=== PATIENT | female | born 1940 | race Two or more races ===

== ENCOUNTER 2020-12-04 00:23 | Emergency (ER) | payer MEDICAID, OTHER ==
[~2020-12-04] VITALS: Ht 162.6 cm; Wt 72.6 kg
[2020-12-04] MEDS ORDERED: HYDROcodone-ACET 5/325MG TAB PO ONE (01:30)
[2020-12-04] MEDS ORDERED: dilTIAZem 25 MG/5 ML VIAL IV ONE (01:30)
[2020-12-04 01:50] LABS: Basophils # (auto) 0.1 10 ^3/uL (0-0.2); Basophils % (auto) 0.5 % (0.0-2.0); Eosinophils # (auto) 0 10 ^3/uL (0-0.8); Eosinophils % (auto) 0.1 % (0.0-7.0); Hematocrit 37.4 % (36.0-46.0); Hemoglobin 12.7 g/dL (12.2-16.2); Lymphocytes # (auto) 1.1 10 ^3/uL (0.4-5.4); Lymphocytes % (auto) 8.6 % (10.0-50.0); Mean Corpuscular Hemoglobin 30.4 pg (28.0-32.0); Mean Corpuscular Hgb Conc. 34.1 g/dL (32.0-36.0); Mean Corpuscular Volume 89.2 fL (80.0-100.0); Monocytes # (auto) 0.8 10 ^3/uL (0-1.3); Monocytes % (auto) 6.6 % (0.0-12.0); Neutrophils # (auto) 10.7 10 ^3/uL (1.6-8.6); Neutrophils % (auto) 84.2 % (37.0-80.0); Red Blood Cells 4.19 10^6/uL (4.0-5.20); Red Cell Distribution Width 13.6 % (11.8-14.3); White Blood Cell 12.7 10^3/uL (4.4-10.8)
[2020-12-04] MEDS ORDERED: METF-370 PO (01:59)
[2020-12-04] MEDS ORDERED: LOSA100T22 PO (02:06)
[2020-12-04] MEDS ORDERED: DABI150C5 PO (02:06)
[2020-12-04] MEDS ORDERED: AMLO-489 PO (02:06)
[2020-12-04 02:08] LABS: Albumin 3.3 g/dL (3.4-5.0); BUN/Creatinine Ratio 30.7; Calcium 9.3 mg/dL (8.5-10.1); INR 1.01 (0.9-1.15); Partial Thromboplastin Time 25.4 sec (23.0-31.2); Potassium 3.2 mmol/L (3.5-5.1)
[2020-12-04 02:11] LABS: Bilirubin, Total 0.8 mg/dL (0.2-1.0); Total Protein 7.6 g/dL (6.4-8.2)
[2020-12-04] MEDS ORDERED: POTASSIUM CHL 20 Meq TABLET PO ONE (04:15)
[2020-12-04 04:41] LABS: Urine Bacteria NONE SEEN /hpf (None Seen); Urine Blood TRACE /uL (Negative); Urine Specific Gravity 1.009 (1.001-1.035); Urine WBC 2 /hpf (0 - 5)
[2020-12-04 06:02] VITALS: BP 135/71
== END 2020-12-04 07:18 | disposition home or self-care (01) ==
LOC: EDBD 00:23 → ER 00:23
DX: M47.892 Other spondylosis, cervical region (principal)
CPT/HCPCS: 36415; 71250; 72125; 74176; 80053; 81001; 84443; 84484; 85025; 85049; 85610; 85730; 93005; 96374